=== PATIENT | male | born 1955 | race Caucasian/White ===

== ENCOUNTER 2016-12-21 09:46 | Inpatient (IN) | payer MEDICARE, OTHER ==
[~2016-12-21] VITALS: Ht 185.4 cm; Wt 120.8 kg
[2016-12-21] VITALS (21 sets, daily range): BP systolic 89–152; BP diastolic 52–91; PULSE 36–55; RESP 16–24; TEMP 98–98.5; O2SAT 87–100
[~2016-12-21 09:46] MED LIST: B/P PILL PO; CEFT500T PO; GEMF600 PO; GLUC10TA3 PO; LORT5TAB PO; VASO10TA8 PO
[2016-12-21] MEDS ORDERED: ATOR40TA16 PO (10:07)
[2016-12-21] MEDS ORDERED: HYDR-3583 PO (10:07)
[2016-12-21] MEDS ORDERED: FENO1TAB46 PO (10:07)
[2016-12-21] MEDS ORDERED: WARF-22 PO (10:07)
[2016-12-21] MEDS ORDERED: LISI-515 PO (10:07)
[2016-12-21] MEDS ORDERED: GLIP10TA6 PO (10:07)
[2016-12-21] MEDS ORDERED: TAMS0.4C4 PO (10:07)
[2016-12-21] MEDS ORDERED: METF850T PO (10:07)
[2016-12-21] MEDS ORDERED: AMIO0.1T PO (10:07)
[2016-12-21 10:48] LABS: AUTOMATED NEUTROPHIL # 4.4 TH/MM3 (1.8-7.7); BASOPHIL # 0.1 TH/MM3 (0-0.2); BASOPHIL % 0.6 % (0.0-2.0); EOSINOPHIL # 0.2 TH/MM3 (0-0.4); EOSINOPHIL % 2.6 % (0.0-4.0); HEMATOCRIT 42.6 % (39.0-51.0); HEMO FLAGS DIFF FINAL; LYMPH % 38.4 % (9.0-44.0); LYMPHOCYTE # 3.5 TH/MM3 (1.0-4.8); MEAN CORPUSCULAR HEMOGLOBIN 33.7 PG (27.0-34.0); MEAN CORPUSCULAR HGB CONC 34.7 % (32.0-36.0); MONO % 9.7 % (0.0-8.0); NEUT % 48.7 % (16.0-70.0); PLATELET COUNT 200 TH/MM3 (150-450); RED BLOOD COUNT 4.39 MIL/MM3 (4.50-5.90); RED CELL DISTRIBUTION WIDTH 13.8 % (11.6-17.2); WHITE BLOOD COUNT 9.1 TH/MM3 (4.0-11.0)
--- NOTE | 2016-12-21 10:49 | RADRPT ---
EXAM DATE/TIME: 12/21/2016 10:08 [facility] COMPARISON: No previous studies available for comparison. INDICATIONS : Palpitation MEDICAL HISTORY : A-fib SURGICAL HISTORY : None. ENCOUNTER: Initial ACUITY: 1 day PAIN SCORE: 0/10 LOCATION: Bilateral chest FINDINGS: A single view of the chest demonstrates left basilar atelectasis. Heart in the upper limits of normal in size. Osseous structures are intact. CONCLUSION: 1. Left basilar atelectasis. Mike Pederson MD on December 21, 2016 at 10:45 Board Certified Radiologist. This report was verified electronically.
[2016-12-21 10:56] LABS: APTT (PATIENT) 27.8 SEC (24.3-30.1); PROTHROMBIN TIME - PATIENT 11.3 SEC (9.8-11.6)
[2016-12-21 10:59] LABS: BLOOD UREA NITROGEN 23 MG/DL (7-18)
[2016-12-21 11:00] LABS: ANION GAP 6 MEQ/L (5-15); BICARBONATE 25.6 MEQ/L (21.0-32.0); CHLORIDE 107 MEQ/L (98-107); GLOMERULAR FILTRATION RATE 70 ML/MIN (>89); MAGNESIUM 1.9 MG/DL (1.5-2.5); POTASSIUM 5.3 MEQ/L (3.5-5.1); SODIUM (NA) 139 MEQ/L (136-145)
[2016-12-21 11:03] LABS: CREATINE KINASE 110 U/L (39-308)
[2016-12-21 11:15] LABS: CKMB 4.1 NG/ML (0.5-3.6)
[2016-12-21] MEDS ORDERED: SODIUM CHLORID 0.9% 500 ML INJ 500 ML IV ONE (11:15)
[2016-12-21] MEDS ORDERED: MORPHINE SULFATE 4 MG/ML INJ IV PRN (12:00)
[2016-12-21] MEDS ORDERED: SENNOSIDES 8.6 MG TAB PO PRN (12:00)
[2016-12-21] MEDS ORDERED: RESP: ALBUTEROL 2.5 MG/3 ML NEB (PRN) INH (12:00)
[2016-12-21] MEDS ORDERED: ONDANSETRON HCL 4 MG/2 ML VIAL IV PRN (12:00)
[2016-12-21] MEDS ORDERED: SODIUM CHLORIDE 0.9% FLUSH 10 ML FLUSH IV FLUSH PRN (12:00)
[2016-12-21] MEDS ORDERED: MISCELLANEOUS NURSING INFORMATION XX SCH (12:00)
[2016-12-21] MEDS ORDERED: ACETAMINOPHEN 325 MG TAB PO PRN (12:00)
[2016-12-21] MEDS ORDERED: CHLORHEXIDINE GLUCONATE 2 % 1 PACK (2 CLOTHS) TOP PRN (12:00)
[2016-12-21] MEDS ORDERED: SODIUM CHLOR 0.9% 1000 ML INJ 1,000 ML IV SCH (12:30)
[2016-12-21] MEDS: GLUCAGON INJ 20 MG in DEXTROSE 5% IN WATER 100ML INJ 80 ML IV SCH ×2 (12:48)
[2016-12-21] MEDS ORDERED: GLUCAGON 1 MG/ML VIAL OTHER PRN (13:00)
[2016-12-21] MEDS ORDERED: DEXTROSE 50% IN WATER 50 ML VIAL(D50) IV PUSH PRN (13:00)
[2016-12-21] MEDS: oxyCODONE/ACETAMINOPHEN 10 MG/325 MG TAB PO SCH ×2 (13:00→19:58)
--- NOTE | 2016-12-21 13:04 | PD ---
HPI Chief Complaint: Cardiac Complaint Time Seen by Provider: 10:06 Travel History International Travel<30 days: No Contact w/Intl Traveler<30days: No Traveled to known affect area: No History of Present Illness HPI 61-year-old male presents with heart rate in the 30s and sent here for evaluation. He was supposed to have surgery today. He denies specific complaints. He states he's had low heart rate before when he's been on his beta laure. He states that he is taken recently and takes it regularly. 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 [facility] Past Medical History Atrial Fibrillation: Yes Cancer: Yes (SKIN) High Cholesterol: Yes Diabetes: Yes Patient Takes Glucophage: Yes (12/20/16 2100) Diminished Hearing: No Deep Vein Thrombosis: Yes Glaucoma: Yes Hypertension: Yes Tetanus Vaccination: Unknown Influenza Vaccination: No ?: Not Past Surgical History Cholecystectomy: Yes Other Surgery: Yes (PAIN PUMP INSERTION 2007) Social History Alcohol Use: No Tobacco Use: Yes (1 PPD) Substance Use: No Allergies-Medications (Allergen,Severity, Reaction): Coded Allergies: No Known Allergies (Verified , 12/21/16) Reported Meds & Prescriptions Reported Meds & Active Scripts Active Reported Fenofibrate 40 Mg Tab 40 Mg PO DAILY Amiodarone (Amiodarone HCl) 100 Mg Tab 100 Mg PO BID Atorvastatin (Atorvastatin Calcium) 40 Mg Tab 40 Mg PO HS Tamsulosin (Tamsulosin HCl) 0.4 Mg Cap 0.4 Mg PO HS Lisinopril 20 Mg Tab 20 Mg PO DAILY Metformin (Metformin HCl) 850 Mg Tab 850 Mg PO BIDPC With meals Hydrocodone-Acetaminophen 10-325 mg Tab 1 Tab PO Q6H PRN Glipizide 10 Mg Tab 10 Mg PO BIDAC Take 30 minutes before a meal Warfarin 10 Mg Tab 10 Mg PO DAILY Review of Systems Except as stated in HPI: all other systems reviewed are Neg Physical Exam Narrative GENERAL: 124 kg patient, well-developed SKIN: Warm and dry. HEAD: Normocephalic and atraumatic. EYES: No injection or drainage. ENT: No nasal drainage noted. NECK: Supple, trachea midline. CARDIOVASCULAR: Bradycardic rate and irregular rhythm RESPIRATORY: Breath sounds equal bilaterally at apices. No accessory muscle use. GASTROINTESTINAL: Abdomen soft, non-tender, nondistended. EXTREMITIES: No edema. NEUROLOGICAL: Awake and alert. Moves all extremities. Normal speech. Data Data Last Documented VS Vital Signs Date Time Temp Pulse Resp B/P Pulse Ox O2 Delivery O2 Flow Rate FiO2 12/21/16 11:08 39 16 89/58 97 Room Air 12/21/16 09:55 98.0 Orders Electrocardiogram (12/21/16 ) Magnesium (Mg) (12/21/16 10:11) Phosphorus (Po4) (12/21/16 10:11) Complete Blood Count With Diff (12/21/16 10:11) Basic Metabolic Panel (Bmp) (12/21/16 10:11) Ckmb (Isoenzyme) Profile (12/21/16 10:11) Troponin I (12/21/16 10:11) Act Partial Throm Time (Ptt) (12/21/16 10:11) Prothrombin Time / Inr (Pt) (12/21/16 10:11) Chest, Single Ap (12/21/16 ) Ecg Monitoring (12/21/16 10:11) Oximetry (12/21/16 10:11) Iv Access Insert/Monitor (12/21/16 10:11) Consult Cardiology (12/21/16 ) CKMB (12/21/16 10:19) CKMB% (12/21/16 10:19) Sodium Chlorid 0.9% 500 Ml Inj (Ns 500 M (12/21/16 11:15) (Hub Use Only)Inp Phy Cons/Ref (12/21/16 ) Glucagon Inj (Glucagon Inj) (12/21/16 12:30) Admit Order (Ed Use Only) (12/21/16 11:49) Labs Laboratory Tests Test 12/21/16 10:19 White Blood Count 9.1 TH/MM3 Red Blood Count 4.39 MIL/MM3 Hemoglobin 14.8 GM/DL Hematocrit 42.6 % Mean Corpuscular Volume 97.0 FL Mean Corpuscular Hemoglobin 33.7 PG Mean Corpuscular Hemoglobin 34.7 % Concent Red Cell Distribution Width 13.8 % Platelet Count 200 TH/MM3 Mean Platelet Volume 9.2 FL Neutrophils (%) (Auto) 48.7 % Lymphocytes (%) (Auto) 38.4 % Monocytes (%) (Auto) 9.7 % Eosinophils (%) (Auto) 2.6 % Basophils (%) (Auto) 0.6 % Neutrophils # (Auto) 4.4 TH/MM3 Lymphocytes # (Auto) 3.5 TH/MM3 Monocytes # (Auto) 0.9 TH/MM3 Eosinophils # (Auto) 0.2 TH/MM3 Basophils # (Auto) 0.1 TH/MM3 CBC Comment DIFF FINAL Differential Comment Prothrombin Time 11.3 SEC Prothromb Time International 1.0 RATIO Ratio Activated Partial 27.8 SEC Thromboplast Time Sodium Level 139 MEQ/L Potassium Level 5.3 MEQ/L Chloride Level 107 MEQ/L Carbon Dioxide Level 25.6 MEQ/L Anion Gap 6 MEQ/L Blood Urea Nitrogen 23 MG/DL Creatinine 1.07 MG/DL Estimat Glomerular Filtration 70 ML/MIN Rate Random Glucose 133 MG/DL Calcium Level 8.9 MG/DL Phosphorus Level 2.8 MG/DL Magnesium Level 1.9 MG/DL Total Creatine Kinase 110 U/L Creatine Kinase MB 4.1 NG/ML Troponin I LESS THAN 0.02 NG/ML MDM Medical Decision Making Medical Screen Exam Complete: Yes Emergency Medical Condition: Yes Medical Record Reviewed: Yes (past history confirmed) Interpretation(s) EKG is narrow complex irregular bradycardic rhythm, right bundle branch block noted, T wave inversion V1 through and V3 no STEMI criteria CBC & BMP Diagram 12/21/16 10:19 Last 24 hours Impressions Chest X-Ray 12/21/16 0000 Signed Impressions: Service Date/Time: , December 21, 2016 10:08 - CONCLUSION: 1. Left basilar atelectasis. Mike Pederson MD Rhythm strip on monitor with glucagon appears to be sinus bradycardia Differential Diagnosis A. fib with slow ventricular response, sinus bradycardia, junctional, electrolyte abnormality Narrative Course will check labs, chest x-ray monitor. Patient asymptomatic and blood pressure is stable. Given glaucoma history will hold atropine Patient is now hypotensive. We'll give fluid bolus of 500 cc and start glucagon drip. Case discussed with cardiology. Patient updated and agrees to admission. He will be closely monitored in the ICU Critical Care Narrative Aggregate critical care time was 40 minutes. Time to perform other separately billable procedures was not included in the critical care time. My time did not include minutes spent treating any other patients simultaneously or on activities that did not directly contribute to the patient's treatment. The services I provided to this patient were to treat and/or prevent clinically significant deterioration that could result in: Worsening Bradycardia, hypotension I provided critical care services requiring my management, as noted below: Chart data review, documentation time, medication orders and management, vital sign assessments/reviewing monitor data, ordering and reviewing lab tests, ordering and interpreting/reviewing x-rays and diagnostic studies, care of the patient and discussion of the patient with the admitting physicians. Physician Communication Physician Communication dr quezada agrees to glucagon drip and will see dr tristan agrees to admit Diagnosis Primary Impression: Sinus bradycardia Admitting Information Admitting Physician Requests: Admit Sneha Tucker MD December 21, 2016 13:04
--- NOTE | 2016-12-21 13:07 | HHI.HP ---
[facility] Service Critical Care Medicine Primary Care Physician Amarilis Corrigan MD Admission Diagnosis bradycardia Diagnosis: (1) Sinus bradycardia Diagnosis: Principal (2) COPD (chronic obstructive pulmonary disease) Diagnosis: Principal (3) History of pulmonary embolus (PE) Diagnosis: Principal (4) Hypertension Diagnosis: Principal (5) BPH (benign prostatic hyperplasia) Diagnosis: Principal (6) Diabetes mellitus Diagnosis: Principal (7) Chronic venous stasis dermatitis Diagnosis: Principal Chief Complaint: I was sent here because they said my heart rate was slow Travel History International Travel<30 Days: No Contact w/Intl Traveler <30 Da: No Traveled to Known Affected Are: No History of Present Illness 61-year-old male. Date of admission 12/21/2016. 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 Arias for replacement of Dilaudid pain pump), diabetes mellitus, atrial fibrillation and chronic venous stasis. He has a history of 5 separate surgeries to his lumbar spine. He presents to [facility] with the following history. This morning, patient states he accidentally took an atenolol in his carport. He presented preop for surgery for Dilaudid pain pump replacement/out for 2 years for which he's been taking Percocets 4 times daily, and on routine vitals noted to have sinus bradycardia. He is hemodynamically stable. He is sent by ambulance to [facility] with further evaluation treatment. Initial EKG revealed a slow A. fib. He is currently in sinus bradycardia on monitor. Electrolytes within normal limits. Troponin 0.02. Initially asymptomatic but became hypotensive and a 1 L normal saline boluses provided. Patient is currently on a glucagon drip just started at 3 mg an hour. Denies chest pain, shortness of breath, nausea or vomiting. Requesting pain medications. Review of Systems Constitutional: COMPLAINS OF: Fatigue, DENIES: Fever, Weight gain, Weight loss Endocrine: DENIES: Heat/cold intolerance, Polyuria Eyes: DENIES: Blurred vision, Double Vision Ears, nose, mouth, throat: DENIES: Tinnitus, Toothache Respiratory: DENIES: Apneas, Hemoptysis Cardiovascular: DENIES: Chest pain Gastrointestinal: DENIES: Abdominal pain Genitourinary: DENIES: Urgency, Hematuria Musculoskeletal: DENIES: Joint pain Integumentary: DENIES: Abnormal pigmentation Hematologic/lymphatic: DENIES: Bruising Immunologic/allergic: DENIES: Eczema Neurologic: DENIES: Abnormal gait Psychiatric: DENIES: Anxiety, Confusion Past Family Social History Allergies: Coded Allergies: No Known Allergies (Verified , 12/21/16) Past Medical History Diabetes mellitus COPD Glaucoma Left lower extremity DVT PE Chronic anticoagulation Chronic venous stasis Atrial fibrillation Past Surgical History 5 separate lumbar spine surgeries Tonsillectomy and adenoidectomy Laparoscopic cholecystectomy Left partial knee Reported Medications Reported Meds & Active Scripts Active Reported Fenofibrate 40 Mg Tab 40 Mg PO DAILY Amiodarone (Amiodarone HCl) 100 Mg Tab 100 Mg PO BID Atorvastatin (Atorvastatin Calcium) 40 Mg Tab 40 Mg PO HS Tamsulosin (Tamsulosin HCl) 0.4 Mg Cap 0.4 Mg PO HS Lisinopril 20 Mg Tab 20 Mg PO DAILY Metformin (Metformin HCl) 850 Mg Tab 850 Mg PO BIDPC With meals Hydrocodone-Acetaminophen 10-325 mg Tab 1 Tab PO Q6H PRN Glipizide 10 Mg Tab 10 Mg PO BIDAC Take 30 minutes before a meal Warfarin 10 Mg Tab 10 Mg PO DAILY Active Ordered Medications Reviewed in EMR Family History Positive for coronary disease and hypertension Social History [id number] tobacco. Occasional alcohol use. Denies IV drug use. Physical Exam Vital Signs Vital Signs Date Time Temp Pulse Resp B/P Pulse Ox O2 Delivery O2 Flow Rate FiO2 12/21/16 12:49 42 17 123/66 97 Room Air 12/21/16 12:25 97 21 12/21/16 11:55 45 17 114/89 97 Room Air 12/21/16 11:08 39 16 89/58 97 Room Air 12/21/16 10:26 40 16 105/58 98 Room Air 12/21/16 10:26 98 Room Air 12/21/16 10:07 44 17 97 Room Air 12/21/16 09:55 98.0 45 16 99/55 97 Physical Exam GENERAL: 61-year-old male, resting in bed in no acute distress SKIN: Warm and dry. Chronic venous stasis changes bilateral lower extremities HEAD: Atraumatic. Normocephalic. EYES: Pupils equal and round about 3 mm bilaterally and reactive. No scleral icterus. No injection or drainage. ENT: No nasal bleeding or discharge. Mucous membranes pink and moist. NECK: Trachea midline. No JVD. CARDIOVASCULAR: Bradycardia, IR. S1, S2 no S4 without murmur RESPIRATORY: No accessory muscle use. Clear to auscultation. Breath sounds equal bilaterally. GASTROINTESTINAL: Abdomen soft, non-tender, nondistended. Hepatic and splenic margins not palpable. MUSCULOSKELETAL: Extremities with chronic venous stasis/1+ nonpitting edema NEUROLOGICAL: Awake and alert. No obvious cranial nerve deficits. Motor grossly within normal limits. Five out of 5 muscle strength in the arms and legs. Normal speech. PSYCHIATRIC: Appropriate mood and affect; insight and judgment normal. Laboratory Laboratory Tests Test 12/21/16 10:19 White Blood Count 9.1 Red Blood Count 4.39 Hemoglobin 14.8 Hematocrit 42.6 Mean Corpuscular Volume 97.0 Mean Corpuscular Hemoglobin 33.7 Mean Corpuscular Hemoglobin 34.7 Concent Red Cell Distribution Width 13.8 Platelet Count 200 Mean Platelet Volume 9.2 Neutrophils (%) (Auto) 48.7 Lymphocytes (%) (Auto) 38.4 Monocytes (%) (Auto) 9.7 Eosinophils (%) (Auto) 2.6 Basophils (%) (Auto) 0.6 Neutrophils # (Auto) 4.4 Lymphocytes # (Auto) 3.5 Monocytes # (Auto) 0.9 Eosinophils # (Auto) 0.2 Basophils # (Auto) 0.1 CBC Comment DIFF FINAL Differential Comment Prothrombin Time 11.3 Prothromb Time International 1.0 Ratio Activated Partial 27.8 Thromboplast Time Sodium Level 139 Potassium Level 5.3 Chloride Level 107 Carbon Dioxide Level 25.6 Anion Gap 6 Blood Urea Nitrogen 23 Creatinine 1.07 Estimat Glomerular Filtration 70 Rate Random Glucose 133 Calcium Level 8.9 Phosphorus Level 2.8 Magnesium Level 1.9 Total Creatine Kinase 110 Creatine Kinase MB 4.1 Troponin I LESS THAN 0.02 Result Diagram: 12/21/16 1019 12/21/16 1019 Imaging Last Impressions Chest X-Ray 12/21/16 0000 Signed Impressions: Service Date/Time: December 10:08 - CONCLUSION: 1. Left basilar atelectasis. Mike Pederson MD Assessment and Plan Assessment and Plan Neuro/Psych: Glaucoma Chronic pain management Chronic low back pain Patient currently on Percocet 10/325 one tablet 4 times a day Acetaminophen for fever Patient with a nonfunctioning Dilaudid pain pump currently. Replace when stable clinically outpatient by Dr. Arias as an outpatient CV: Sinus bradycardia - symptomatic History of hypertension History of atrial fibrillation Currently monitor reveals sinus bradycardia Received 1 L normal saline in ED for hypotension Currently a glucagon drip at 3 mg an hour. Titrate 1 mg every 15 minutes to effect Hold amiodarone 100 mg by mouth twice a day patient fibrillation Hold lisinopril 20 mg by mouth daily while hypotensive Hold atorvastatin 40 mg by mouth daily. Resume when clinically indicated Initial troponin 0.02 Consulted by cardiology/Dr. Eastman Resp: COPD History of pulmonary embolism Nasal cannula to maintain saturations greater than or equal to 92% Incentive spirometry while awake As needed albuterol therapy every 2 hours Chest x-ray 12/21 revealed left lower lobe atelectasis GI: ADA diet Protonix for GI prophylaxis Colace/as needed Senokot for bowel regimen : BPH Woody is currently not indicated Holding Flomax 0.4 mill grams by mouth daily currently. Endo: Diabetes mellitus Hold Glucophage 850 mg by mouth twice a day and glipizide 10 mg by mouth twice a day Sliding-scale insulin with Accu-Cheks every 4 hours/medium protocol Minute insulin drip while on glucagon drip Renal: Creatinine currently within normal limits Follow up BMP On normal saline at 84 cc an hour Heme: Chronic anticoagulation use/warfarin CBC within normal limits Coags within normal limits ID: Monitor for infection MSK: History of lumbar surgery 5 History of left total knee replacement PT evaluate and treat FEN: Hyperkalemia Monitor electrolytes and replace as clinically indicated Access - Utilize peripheral IV. Central line if indicated Prophylaxis - GI - Protonix - DVT - SCD/heparin subcutaneous Critical Care: The total critical care time was 55 minutes. Time to perform other separately billable procedures was not included in the critical care time. Code Status Full code Discussed Condition With Dr. Sneha Tucker/ED physician. Patient. Care plan discussed all questions answered. Problem Qualifiers (1) COPD (chronic obstructive pulmonary disease): (2) Hypertension: Qualified Code: I10 - Essential hypertension (3) BPH (benign prostatic hyperplasia): Qualified Code: N40.0 - Benign prostatic hyperplasia, presence of lower urinary tract symptoms unspecified, unspecified morphology (4) Diabetes mellitus: Hugo Alvares MD December 21, 2016 13:06
[2016-12-21] MEDS: ACETAMINOPHEN/HYDROcodone 325 MG/5 MG TAB PO PRN ×2 (13:31→17:38)
[2016-12-21] MEDS: MAGNESIUM SULFATE 1 GM PREMIX 100 ML IV SCH ×2 (13:32→14:42)
[2016-12-21] MEDS: ARTIFICIAL TEARS OPTH SOLN 15 ML BTL EACH EYE SCH ×2 (13:42→17:38)
--- NOTE | 2016-12-21 14:51 | OTSOAPIP ---
TIME SESSION COMPLETED: 1400 TREATMENT TIME: 0 MINS. CHART REVIEWED. INTERDISCIPLINARY COMMUNICATION: CONSULTED WITH NURSING, OCCUPATIONAL THERAPY EVALUATION HELD PATIENT WITH A HEART RATE OF 44. PLAN: WILL SEE PATIENT NEXT TREATMENT DAY Therapist: SANDI GIRON/[employer] on file
[2016-12-21] MEDS ORDERED: CALCIUM GLUCONATE INJ 1 GM in SODIUM CHLORIDE 0.9% INJ 100 ML IV ONE (15:00)
--- NOTE | 2016-12-21 15:22 | EKG ---
Date Performed: 12/21/2016 Time Performed: 09:56:21 PTAGE: 61 years EKG: Probable ATRIAL FIBRILLATION WITH SLOW VENTRICULAR RESPONSE RIGHT BUNDLE BRANCH BLOCK ABNOR MAL ECG INTERPRETATION BASED ON A DEFAULT AGE OF 40 YEARS COMPARED TO PRIOR ELECTROCARDIOGRAM, Probab le atrial fibrillation has replaced Sinus rhythm . PREVIOUS TRACING : 07/29/2007 11.47 DOCTOR: Isauro Dougherty Interpretating Date/Time 12/21/2016 15:21:21
[2016-12-21] MEDS: INSULIN NovoLIN REGULAR SUPPLEMENTAL SCALE SQ SCH ×2 (16:00→20:00)
--- NOTE | 2016-12-21 16:46 | MB ---
cc: NICOLE NAVARRO M.D. DATE OF CONSULTATION 12/21/16 Ronny is a very pleasant 61-year-old gentleman followed at the MD sent to [facility] for elective surgery today, however, found to have a heart rate in the 30s with hypotension was sent to the ER for evaluation and management. He has been recently told to stop his beta laure due to bradycardia and he accidentally took it last night. Currently, he is sitting at the bedside. He is responding to fluid boluses. He has a history of glaucoma and was not given atropine. Otherwise, he denies any fevers, chills, cough, GIx or bleeding, paroxysmal nocturnal dyspnea orthopnea, syncope or dizziness. PAST MEDICAL HISTORY As per history present illness. 1. History of hyperlipidemia, 2. Diabetes. 3. Deep vein thrombosis 4. Glaucoma, 5. Hypertension, 6. Pain pump insertion 2007 SOCIAL HISTORY He smokes a pack of cigarettes a day. He denies alcohol use. ALLERGIES None. MEDICATIONS Prior to admission here. 1. Fenofibrate 2. Amiodarone 3. Atorvastatin 4. Tamsulosin 5. Lisinopril 6. Metformin 7. Hydrocodone 8. Glipizide 9. Warfarin Current in the hospital. 1. Pantoprazole 40 IV daily, 2. Docusate 100 b.i.d. 3. Calcium carbonate. 4. Insulin. PHYSICAL EXAMINATION VITAL SIGNS: Pulse ranging between 44 and 55, blood pressure 151/91. GENERAL: He is alert and oriented times three in no acute distress. NECK: Supple. No jugular venous distention. No bruit. CARDIOVASCULAR: S1, S2, no murmurs, rubs or gallops. LUNGS: Clear to auscultation bilateral. ABDOMEN: Soft, nontender, nondistended with positive bowel sounds. EXTREMITIES: No lower extremity edema. LABORATORY DATA White count 9.1, hemoglobin 14.8, hematocrit 42.2 platelet count 200. Sodium 139, potassium, 5.3, chloride 107, bicarb 25.6, BUN 23, creatinine 1.07, glucose 133. Troponin less than 0.02. INR 1.0. IMAGING STUDIES Chest x-ray - left basilar atelectasis CARDIOLOGY STUDIES Electrocardiogram - interpretation shows probable atrial fibrillation with slow ventricular responds, right bundle branch block. DIAGNOSES 1. Atrial fibrillation with slow response 2. Hypertension. 3. Diabetes. 4. History of DVT. 5. Hypertension 6. Tobacco use. 7. Pain pump insertion. ASSESSMENT At this point in time, the patient is responding to fluid boluses and obviously we are going to hold his beta-laure, suspect heart rate will normalize off his atenolol. His anticoagulation has been held due to perioperative status. We will continue telemetry monitoring. Further recommendations pending the trend in his heart rate and blood pressure. MD FERCHO Machuca/ /3:59 PM /4:34 PM
[2016-12-21] MEDS: DOCUSATE SODIUM 100 MG CAP PO SCH (19:58)
[2016-12-21] MEDS: SODIUM CHLORIDE 0.9% FLUSH 10 ML FLUSH IV FLUSH SCH (19:59)
--- NOTE | 2016-12-21 20:14 | PD.PROCEDR ---
Central Line Procedure REASON FOR PROCEDURE Central venous access PROCEDURE PERFORMED Central line placement: Right IJ Cordis CONSENT Informed consent for procedure was obtained from the patient. The risks and benefits of the procedure were discussed to include but limited to bleeding, clot formation, infection, and even . ANESTHESIA Local injection of 1% Lidocaine DESCRIPTION OF THE PROCEDURE The patient was placed in supine, mild Trendelenburg position. The area was exposed and cleansed with ChloraPrep, times two. Large sterile drape was used to cover the patient, with the site exposed, under sterile conditions including cap, face mask, sterile gown, and sterile gloves. On single attempt, the introducer needle was inserted with negative pressure in syringe and venous flash was obtained. The guide wire was then advanced without any restriction and the needle was removed. The dilator was used without any complications. Using Seldinger technique the. Psychiatric injured goal hemostasis valve/side- port 7.5 Sami catheter was advanced over the guide wire to a depth of 10 centimeters. The guide wire was removed. The single port was aspirated with dark venous blood return and flushed easily with sterile saline. The 2 ports were capped. Antibiotic disc was placed around central line at puncture site. The central line was secured to the skin with 1 interrupted 2.0 silk sutures. The area was bandaged with sterile see-through central line bandage. RADIOLOGICAL DATA Ultrasound guidance was used to locate right internal jugular vein. Doppler/ color flow was used to confirm venous flow. COMPLICATIONS: No apparent complications ESTIMATED BLOOD LOSS: Less than 1 cc. Hugo Alvares MD December 21, 2016 20:14
[2016-12-21] MEDS ORDERED: DOPamine INJ 1,600 MG in DEXTROSE 5% IN WATER INJ 240 ML IV SCH ×2 (20:15)
[2016-12-21] MEDS ORDERED: TERBUTALINE INJ 1 MG/ML AMP SQ PRN (20:15)
[2016-12-21] MEDS ORDERED: SODIUM CHLORIDE 0.9% FLUSH 10 ML FLUSH IVF PRN (20:15)
--- NOTE | 2016-12-21 20:37 | RADRPT ---
EXAM DATE/TIME: 12/21/2016 20:17 This report includes an Addendum and supersedes previous reports for this exam. [facility] COMPARISON: CHEST SINGLE AP, December 21, 2016, 10:08. INDICATIONS : Central line placement. MEDICAL HISTORY : Afib SURGICAL HISTORY : None. ENCOUNTER: Initial ACUITY: 1 day PAIN SCORE: 0/10 LOCATION: Bilateral chest FINDINGS: Right neck sheath is noted. No pneumothorax from placement. Mild basilar interstitial infiltrates per sist. No significant effusion. Cardiac contours are stable. CONCLUSION: Mild basilar interstitial changes Evelio Elizabeth MD on December 21, 2016 at 20:35 Board Certified Radiologist. This report was verified electronically. ADDENDUM: The right neck sheath is present extending to the low jugular region. No evidence of pneumothorax or other complication. Evelio Elizabeth MD on December 21, 2016 at 21:05 Board Certified Radiologist. This report was verified electronically.
[2016-12-22] VITALS (22 sets, daily range): BP systolic 92–143; BP diastolic 54–97; PULSE 42–56; RESP 15–29; TEMP 97.8–98.8; O2SAT 87–95
[2016-12-22] MEDS: oxyCODONE/ACETAMINOPHEN 10 MG/325 MG TAB PO SCH ×4 (00:30→17:57)
[2016-12-22] MEDS: GLUCAGON INJ 20 MG in DEXTROSE 5% IN WATER 100ML INJ 80 ML IV SCH ×6 (00:30→10:02)
[2016-12-22 01:20] LABS: AUTOMATED NEUTROPHIL # 6.2 TH/MM3 (1.8-7.7); BASOPHIL # 0.1 TH/MM3 (0-0.2); BASOPHIL % 0.8 % (0.0-2.0); EOSINOPHIL # 0.2 TH/MM3 (0-0.4); EOSINOPHIL % 2.1 % (0.0-4.0); HEMATOCRIT 41.5 % (39.0-51.0); HEMO FLAGS DIFF FINAL; LYMPH % 29.8 % (9.0-44.0); LYMPHOCYTE # 3.1 TH/MM3 (1.0-4.8); MEAN CORPUSCULAR HGB CONC 34.3 % (32.0-36.0); MONO % 7.3 % (0.0-8.0); PLATELET COUNT 165 TH/MM3 (150-450); RED BLOOD COUNT 4.32 MIL/MM3 (4.50-5.90); RED CELL DISTRIBUTION WIDTH 13.7 % (11.6-17.2); WHITE BLOOD COUNT 10.3 TH/MM3 (4.0-11.0)
[2016-12-22 01:27] LABS: PROTHROMBIN TIME - PATIENT 11.4 SEC (9.8-11.6)
[2016-12-22 01:46] LABS: ALT (GPT) 26 U/L (12-78); ANION GAP 8 MEQ/L (5-15); AST (GOT) 19 U/L (15-37); BICARBONATE 25.6 MEQ/L (21.0-32.0); BLOOD UREA NITROGEN 22 MG/DL (7-18); CHLORIDE 104 MEQ/L (98-107); GLOMERULAR FILTRATION RATE 116 ML/MIN (>89); MAGNESIUM 2.1 MG/DL (1.5-2.5); POTASSIUM 3.6 MEQ/L (3.5-5.1); SODIUM (NA) 138 MEQ/L (136-145)
[2016-12-22 01:50] LABS: ALKALINE PHOSPHATASE 39 U/L (45-117); TOTAL BILIRUBIN ADULT 0.5 MG/DL (0.2-1.0)
[2016-12-22] MEDS: CHLORHEXIDINE GLUCONATE 2 % 1 PACK (2 CLOTHS) TOP SCH (04:00)
[2016-12-22] MEDS: INSULIN NovoLIN REGULAR SUPPLEMENTAL SCALE SQ SCH ×7 (04:00→23:44)
--- NOTE | 2016-12-22 05:30 | RADRPT ---
EXAM DATE/TIME: 12/22/2016 02:31 [facility] COMPARISON: CHEST SINGLE AP, December 21, 2016, 20:17. INDICATIONS : Shortness of breath. MEDICAL HISTORY : Afib SURGICAL HISTORY : None. ENCOUNTER: Subsequent ACUITY: 2 days PAIN SCORE: 0/10 LOCATION: chest FINDINGS: The right lung base is now clear. The right lung is clear. There is a mild infiltrate in the left sang g base. The left upper lung is clear. There are no pleural effusions. The heart size is stable. The b bud structures are stable. CONCLUSION: 1. Mild left lower lung infiltrate. 2. The previously noted mild right lower lung infiltrate resolved. Yusuf Sethi MD on December 22, 2016 at 5:28 Board Certified Radiologist. This report was verified electronically.
[2016-12-22] MEDS: PANTOPRAZOLE SODIUM 40 MG VIAL IV SCH (08:38)
[2016-12-22] MEDS: SODIUM CHLORIDE 0.9% FLUSH 10 ML FLUSH IV FLUSH SCH ×2 (08:38→19:45)
[2016-12-22] MEDS: ARTIFICIAL TEARS OPTH SOLN 15 ML BTL EACH EYE SCH ×3 (08:39→18:00)
[2016-12-22] MEDS: DOCUSATE SODIUM 100 MG CAP PO SCH ×2 (08:39→19:45)
[2016-12-22] MEDS ORDERED: INFLUENZA VIRUS VACCINE (QUADRIVALENT) 0.5 ML SYR IM ONE (10:00)
--- NOTE | 2016-12-22 10:41 | PD.CARD.PN ---
Subjective Subjective Remarks alert in nad Objective Vital Signs / I&O Vital Signs Date Time Temp Pulse Resp B/P Pulse Ox O2 Delivery O2 Flow Rate FiO2 12/22/16 06:00 48 12/22/16 05:00 46 18 125/59 88 12/22/16 04:00 98.4 46 18 126/78 89 12/22/16 04:00 46 12/22/16 03:00 43 20 120/68 90 12/22/16 02:01 45 18 109/59 87 12/22/16 02:00 44 12/22/16 02:00 44 12/22/16 01:01 42 20 122/67 91 12/22/16 00:21 98.2 46 29 92/54 89 12/22/16 00:00 45 12/22/16 00:00 45 12/21/16 23:01 46 19 122/66 90 12/21/16 22:17 48 19 91/52 87 12/21/16 22:00 45 12/21/16 22:00 48 12/21/16 20:00 39 12/21/16 20:00 39 12/21/16 20:00 39 24 138/74 94 12/21/16 19:00 98.5 36 24 105/55 93 12/21/16 17:30 36 12/21/16 16:45 49 16 122/76 100 Room Air 12/21/16 16:24 48 16 122/72 100 Room Air 12/21/16 15:43 48 16 151/91 97 Room Air 12/21/16 15:34 51 16 152/82 97 Room Air 12/21/16 14:40 16 12/21/16 14:36 44 16 140/86 98 Room Air 12/21/16 14:21 55 16 130/77 98 Room Air 12/21/16 14:03 52 16 114/57 98 Room Air 12/21/16 13:23 49 17 126/81 96 Room Air 12/21/16 13:00 48 17 123/66 96 Room Air 12/21/16 12:49 42 17 123/66 97 Room Air 12/21/16 12:25 97 21 12/21/16 11:55 45 17 114/89 97 Room Air 12/21/16 11:08 39 16 89/58 97 Room Air I/O 5/11/17 12/21/16 12/21/16 12/22/16 12/22/16 12/22/16 07:00 15:00 23:00 07:00 15:00 23:00 Intake Total 603 ml 268 ml Output Total 200 ml 400 ml 300 ml Balance -200 ml 203 ml -32 ml Intake Oral 360 ml 120 ml IV Total 243 ml 148 ml Output Urine Total 200 ml 400 ml 300 ml # Voids 1 # Bowel Movements 0 0 Physical Exam GENERAL: SKIN: Warm and dry. HEAD: Normocephalic. EYES: No scleral icterus. No injection or drainage. NECK: Supple, trachea midline. No JVD or lymphadenopathy. CARDIOVASCULAR: Regular rate and rhythm without murmurs, gallops, or rubs. RESPIRATORY: Breath sounds equal bilaterally. No accessory muscle use. GASTROINTESTINAL: Abdomen soft, non-tender, nondistended. MUSCULOSKELETAL: No cyanosis, or edema. BACK: Nontender without obvious deformity. No CVA tenderness. Laboratory Laboratory Tests Test 12/21/16 12/21/16 12/22/16 17:30 18:33 01:00 Nasal Screen MRSA (PCR) MRSA NOT DETECTED Troponin I LESS THAN 0.02 LESS THAN 0.02 NG/ML NG/ML Thyroid Stimulating Hormone 0.761 uIU/ML 3rd Gen White Blood Count 10.3 TH/MM3 Red Blood Count 4.32 MIL/MM3 Hemoglobin 14.2 GM/DL Hematocrit 41.5 % Mean Corpuscular Volume 96.0 FL Mean Corpuscular Hemoglobin 33.0 PG Mean Corpuscular Hemoglobin 34.3 % Concent Red Cell Distribution Width 13.7 % Platelet Count 165 TH/MM3 Mean Platelet Volume 8.9 FL Neutrophils (%) (Auto) 60.0 % Lymphocytes (%) (Auto) 29.8 % Monocytes (%) (Auto) 7.3 % Eosinophils (%) (Auto) 2.1 % Basophils (%) (Auto) 0.8 % Neutrophils # (Auto) 6.2 TH/MM3 Lymphocytes # (Auto) 3.1 TH/MM3 Monocytes # (Auto) 0.8 TH/MM3 Eosinophils # (Auto) 0.2 TH/MM3 Basophils # (Auto) 0.1 TH/MM3 CBC Comment DIFF FINAL Differential Comment Prothrombin Time 11.4 SEC Prothromb Time International 1.0 RATIO Ratio Activated Partial 29.0 SEC Thromboplast Time Sodium Level 138 MEQ/L Potassium Level 3.6 MEQ/L Chloride Level 104 MEQ/L Carbon Dioxide Level 25.6 MEQ/L Anion Gap 8 MEQ/L Blood Urea Nitrogen 22 MG/DL Creatinine 0.69 MG/DL Estimat Glomerular Filtration 116 ML/MIN Rate Random Glucose 143 MG/DL Lactic Acid Level 0.6 mmol/L Calcium Level 8.7 MG/DL Phosphorus Level 2.5 MG/DL Magnesium Level 2.1 MG/DL Total Bilirubin 0.5 MG/DL Aspartate Amino Transf 19 U/L (AST/SGOT) Alanine Aminotransferase 26 U/L (ALT/SGPT) Alkaline Phosphatase 39 U/L Total Protein 6.2 GM/DL Albumin 3.4 GM/DL Assessment and Plan Problem List: (1) COPD (chronic obstructive pulmonary disease) (2) Sinus bradycardia (3) Diabetes mellitus (4) Hypertension (5) BPH (benign prostatic hyperplasia) Assessment and Plan 1.) Bradycardia - resolving off atenolol, ok to transfer out of icu to telemetry , d/w patient and Dr Alvares Problem Qualifiers (1) COPD (chronic obstructive pulmonary disease): (2) Diabetes mellitus: (3) Hypertension: Qualified Code: I10 - Essential hypertension (4) BPH (benign prostatic hyperplasia): Qualified Code: N40.0 - Benign prostatic hyperplasia, presence of lower urinary tract symptoms unspecified, unspecified morphology Maxime Eastman MD December 22, 2016 10:41
--- NOTE | 2016-12-22 10:47 | HHI.CCPN ---
Subjective Remarks/Hospital Course 61-year-old male. Date of admission 12/21/2016. 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 Arias for replacement of Dilaudid pain pump), diabetes mellitus, atrial fibrillation and chronic venous stasis. He has a history of 5 separate surgeries to his lumbar spine. He presents to [facility] with the following history. This morning, patient states he accidentally took an atenolol in his carport. He presented preop for surgery for Dilaudid pain pump replacement/out for 2 years for which he's been taking Percocets 4 times daily, and on routine vitals noted to have sinus bradycardia. He is hemodynamically stable. He is sent by ambulance to [facility] with further evaluation treatment. Initial EKG revealed a slow A. fib. He is currently in sinus bradycardia on monitor. Electrolytes within normal limits. Troponin 0.02. Initially asymptomatic but became hypotensive and a 1 L normal saline boluses provided. Patient is currently on a glucagon drip just started at 3 mg an hour. Denies chest pain, shortness of breath, nausea or vomiting. Requesting pain medications. Subjective 12/22: Asymptomatic. Denies chest pain, shortness of breath, dizziness. Heart rates ranged from mid 30s to upper 50s. Hemodynamically stable Objective Vital Signs Date Time Temp Pulse Resp B/P Pulse Ox O2 Delivery O2 Flow Rate FiO2 12/22/16 06:00 48 12/22/16 05:00 18 125/59 88 12/22/16 04:00 98.4 12/21/16 16:45 Room Air 12/21/16 12:25 21 Intake and Output 12/21/16 12/21/16 12/22/16 08:00 16:00 00:00 Intake Total 603 ml Output Total 200 ml 400 ml Balance -200 ml 203 ml Result Diagram: 12/22/16 0100 12/22/16 0100 Imaging Last Impressions Chest X-Ray 12/22/16 0000 Signed Impressions: Service Date/Time: Thursday, December 22, 2016 02:31 - CONCLUSION: 1. Mild left lower lung infiltrate. 2. The previously noted mild right lower lung infiltrate resolved. Yusuf Sethi MD Last Impressions Chest X-Ray 12/21/16 0000 Signed Impressions: Service Date/Time: December 10:08 - CONCLUSION: 1. Left basilar atelectasis. Mkie Pederson MD Objective Remarks GENERAL: 61-year-old male, resting in bed in no acute distress SKIN: Warm and dry. Chronic venous stasis changes bilateral lower extremities HEAD: Atraumatic. Normocephalic. EYES: Pupils equal and round about 3 mm bilaterally and reactive. No scleral icterus. No injection or drainage. ENT: No nasal bleeding or discharge. Mucous membranes pink and moist. NECK: Trachea midline. No JVD. Right cordis clean dry and intact CARDIOVASCULAR: Bradycardia, RR. S1, S2 no S4 without murmur RESPIRATORY: No accessory muscle use. Clear to auscultation. Breath sounds equal bilaterally. GASTROINTESTINAL: Abdomen soft, non-tender, nondistended. Hepatic and splenic margins not palpable. MUSCULOSKELETAL: Extremities with chronic venous stasis/1+ nonpitting edema NEUROLOGICAL: Awake and alert. No obvious cranial nerve deficits. Motor grossly within normal limits. Five out of 5 muscle strength in the arms and legs. Normal speech. PSYCHIATRIC: Appropriate mood and affect; insight and judgment normal. A/P Assessment and Plan Neuro/Psych: Glaucoma Chronic pain management Chronic low back pain Patient currently on Percocet 10/325 one tablet 4 times a day Acetaminophen for fever Patient with a nonfunctioning Dilaudid pain pump currently. Replace when stable clinically outpatient by Dr. Arias as an outpatient CV: Sinus bradycardia - symptomatic History of hypertension History of atrial fibrillation Currently monitor reveals sinus bradycardia Received 1 L normal saline in ED for hypotension Currently a glucagon drip at 3 mg an hour. We'll discontinue today Hold amiodarone 100 mg by mouth twice a day patient fibrillation Hold lisinopril 20 mg by mouth daily while hypotensive Hold atorvastatin 40 mg by mouth daily. Resume when clinically indicated Initial troponin 0.02 Consulted by cardiology/Dr. Eastman echoCardiogram pending Resp: COPD History of pulmonary embolism Nasal cannula to maintain saturations greater than or equal to 92% Incentive spirometry while awake As needed albuterol therapy every 2 hours Chest x-ray 12/21 revealed left lower lobe atelectasis GI: ADA diet Protonix for GI prophylaxis Colace/as needed Senokot for bowel regimen : BPH Woody is currently not indicated Holding Flomax 0.4 mill grams by mouth daily currently. Endo: Diabetes mellitus Hold Glucophage 850 mg by mouth twice a day and glipizide 10 mg by mouth twice a day Sliding-scale insulin with Accu-Cheks every 4 hours/medium protocol Renal: Creatinine currently within normal limits Follow up BMP On normal saline at 84 cc an hour. Discontinue Heme: Chronic anticoagulation use/warfarin CBC within normal limits Coags within normal limits ID: Monitor for infection MSK: History of lumbar surgery 5 History of left total knee replacement PT evaluate and treat FEN: Hyperkalemia Monitor electrolytes and replace as clinically indicated Access - Utilize peripheral IV. Central line if indicated Prophylaxis - GI - Protonix - DVT - SCD/heparin subcutaneous Critical Care: The total care time was 30 minutes. Time to perform other separately billable procedures was not included in the critical care time. Patient is stable from a critical care standpoint. Discussed with Dr. Eastman/ pipeline superintendent. Okay to transfer to [facility]. Hospitalist assume care in a.m. 12/23 Hugo Alvares MD December 22, 2016 10:47
[2016-12-22] MEDS: SODIUM CHLORIDE 0.9% FLUSH 10 ML FLUSH IVF SCH (13:03)
--- NOTE | 2016-12-22 14:22 | PD.TRANSFR ---
Transfer Summary Admission Date December 21, 2016 at 11:51 Transfer Date: December 22, 2016 Admitting Diagnosis bradycardia Diagnoses: (1) Sinus bradycardia Diagnosis: Principal (2) COPD (chronic obstructive pulmonary disease) Diagnosis: Principal (3) History of pulmonary embolus (PE) Diagnosis: Principal (4) Hypertension Diagnosis: Principal (5) BPH (benign prostatic hyperplasia) Diagnosis: Principal (6) Diabetes mellitus Diagnosis: Principal (7) Chronic venous stasis dermatitis Diagnosis: Principal Transfer Summary/Subjective 61-year-old admitted for sinus bradycardia. Accidentally took atenolol prior to elective surgery Objective Vital Signs Date Time Temp Pulse Resp B/P Pulse Ox O2 Delivery O2 Flow Rate FiO2 12/22/16 12:00 98.6 46 19 105/56 92 12/21/16 16:45 Room Air 12/21/16 12:25 21 Intake and Output 12/21/16 12/21/16 12/22/16 08:00 16:00 00:00 Intake Total 603 ml Output Total 200 ml 400 ml Balance -200 ml 203 ml Result Diagram: 12/22/16 0100 12/22/16 0100 Imaging Last Impressions Chest X-Ray 12/22/16 0000 Signed Impressions: Service Date/Time: Thursday, December 22, 2016 02:31 - CONCLUSION: 1. Mild left lower lung infiltrate. 2. The previously noted mild right lower lung infiltrate resolved. Yusuf Sethi MD Last Impressions Chest X-Ray 12/21/16 0000 Signed Impressions: Service Date/Time: December 10:08 - CONCLUSION: 1. Left basilar atelectasis. Mike Pederson MD Objective Remarks GENERAL: 61-year-old male, resting in bed in no acute distress SKIN: Warm and dry. Chronic venous stasis changes bilateral lower extremities HEAD: Atraumatic. Normocephalic. EYES: Pupils equal and round about 3 mm bilaterally and reactive. No scleral icterus. No injection or drainage. ENT: No nasal bleeding or discharge. Mucous membranes pink and moist. NECK: Trachea midline. No JVD. Right cordis clean dry and intact CARDIOVASCULAR: Bradycardia, RR. S1, S2 no S4 without murmur RESPIRATORY: No accessory muscle use. Clear to auscultation. Breath sounds equal bilaterally. GASTROINTESTINAL: Abdomen soft, non-tender, nondistended. Hepatic and splenic margins not palpable. MUSCULOSKELETAL: Extremities with chronic venous stasis/1+ nonpitting edema NEUROLOGICAL: Awake and alert. No obvious cranial nerve deficits. Motor grossly within normal limits. Five out of 5 muscle strength in the arms and legs. Normal speech. PSYCHIATRIC: Appropriate mood and affect; insight and judgment normal. A/P Assessment and Plan Neuro/Psych: Glaucoma Chronic pain management Chronic low back pain Patient currently on Percocet 10/325 one tablet 4 times a day Acetaminophen for fever Patient with a nonfunctioning Dilaudid pain pump currently. Replace when stable clinically outpatient by Dr. Arias as an outpatient CV: Sinus bradycardia - symptomatic History of hypertension History of atrial fibrillation Currently monitor reveals sinus bradycardia Received 1 L normal saline in ED for hypotension Currently a glucagon drip at 3 mg an hour. We'll discontinue today Hold amiodarone 100 mg by mouth twice a day patient fibrillation Hold lisinopril 20 mg by mouth daily while hypotensive Hold atorvastatin 40 mg by mouth daily. Resume when clinically indicated Initial troponin 0.02 Consulted by cardiology/Dr. Eastman echoCardiogram pending Resp: COPD History of pulmonary embolism Nasal cannula to maintain saturations greater than or equal to 92% Incentive spirometry while awake As needed albuterol therapy every 2 hours Chest x-ray 12/21 revealed left lower lobe atelectasis GI: ADA diet Protonix for GI prophylaxis Colace/as needed Senokot for bowel regimen : BPH Woody is currently not indicated Holding Flomax 0.4 mill grams by mouth daily currently. Endo: Diabetes mellitus Hold Glucophage 850 mg by mouth twice a day and glipizide 10 mg by mouth twice a day Sliding-scale insulin with Accu-Cheks every 4 hours/medium protocol Renal: Creatinine currently within normal limits Follow up BMP On normal saline at 84 cc an hour. Discontinue Heme: Chronic anticoagulation use/warfarin CBC within normal limits Coags within normal limits ID: Monitor for infection MSK: History of lumbar surgery 5 History of left total knee replacement PT evaluate and treat FEN: Hyperkalemia Monitor electrolytes and replace as clinically indicated Access - Utilize peripheral IV. Central line if indicated Prophylaxis - GI - Protonix - DVT - SCD/heparin subcutaneous Critical Care: The total care time was 30 minutes. Time to perform other separately billable procedures was not included in the critical care time. Patient is stable from a critical care standpoint. Discussed with Dr. Eastman/ enroller. Okay to transfer to [facility]. Hospitalist assume care in a.m. 12/23 Hugo Alvares MD December 22, 2016 14:22
[2016-12-23] VITALS (20 sets, daily range): BP systolic 114–128; BP diastolic 62–77; PULSE 42–57; RESP 17–20; TEMP 97.8–97.9; O2SAT 94–95
[2016-12-23] MEDS: oxyCODONE/ACETAMINOPHEN 10 MG/325 MG TAB PO SCH ×2 (03:54→06:36)
[2016-12-23] MEDS: INSULIN NovoLIN REGULAR SUPPLEMENTAL SCALE SQ SCH ×4 (04:00→16:00)
[2016-12-23] MEDS: CHLORHEXIDINE GLUCONATE 2 % 1 PACK (2 CLOTHS) TOP SCH (04:00)
[2016-12-23 06:54] LABS: HEMATOCRIT 43.8 % (39.0-51.0); MEAN CELL VOLUME 96.4 FL (80.0-100.0); MEAN CORPUSCULAR HEMOGLOBIN 32.2 PG (27.0-34.0); MEAN CORPUSCULAR HGB CONC 33.4 % (32.0-36.0); PLATELET COUNT 153 TH/MM3 (150-450); RED BLOOD COUNT 4.54 MIL/MM3 (4.50-5.90); RED CELL DISTRIBUTION WIDTH 13.4 % (11.6-17.2); REVIEW FLAG FINAL
[2016-12-23 07:15] LABS: BICARBONATE 24.7 MEQ/L (21.0-32.0); MAGNESIUM 1.7 MG/DL (1.5-2.5); POTASSIUM 3.8 MEQ/L (3.5-5.1)
--- NOTE | 2016-12-23 08:14 | HHI.PR ---
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 Arias for replacement of Dilaudid pain pump), has diabetes mellitus, atrial fibrillation and chronic venous stasis. He has a history of 5 separate surgeries to his lumbar spine. He presents to [facility] with the following history. He accidentally took an atenolol in his carport. He presented preop for surgery for Dilaudid pain pump replacement out for 2 years for which he's been taking Percocet 4 times daily, and on routine vitals noted to have sinus bradycardia. He is hemodynamically stable. He is sent by ambulance to [facility] with further evaluation treatment. Initial EKG revealed a slow A. fib. He is currently in sinus bradycardia on monitor. Electrolytes within normal limits. 12/22: Asymptomatic. Denies chest pain, shortness of breath, dizziness. Heart rates ranged from mid 30s to upper 50s. Hemodynamically stable Hospitalist Notes: 12/23: as per alignment specialist Sinus Bradycardia resolving off Atenolol. stable seen in his bedroom states he smokes and need to stop smoking, also has Obesity strongly recommended diet and exercise, No nausea, vomit or diarrhea states his actual situation was related to the intake of Aten[facility]ol [facility] but he took them because he has like 12 bottles at home and run out of his actual anti hypertensives. discussed with nurse Miss Freeman heart rate in 50s. Objective Vital Signs Date Time Temp Pulse Resp B/P Pulse Ox O2 Delivery O2 Flow Rate FiO2 12/23/16 07:00 57 12/23/16 06:00 46 12/23/16 05:00 44 12/23/16 04:26 20 12/23/16 04:00 48 12/23/16 03:51 97.9 51 20 121/62 95 12/23/16 03:00 44 12/23/16 02:00 44 12/23/16 01:00 44 12/23/16 00:00 42 12/22/16 23:37 97.8 47 20 94/57 95 12/22/16 23:00 42 12/22/16 22:00 46 12/22/16 21:00 46 12/22/16 20:54 49 12/22/16 20:54 98.2 46 20 143/87 94 12/22/16 20:00 47 12/22/16 20:00 98.8 47 18 136/81 92 12/22/16 19:54 93 12/22/16 18:00 50 12/22/16 16:00 98.2 51 20 142/97 92 12/22/16 16:00 47 12/22/16 14:00 56 12/22/16 12:00 98.6 46 19 105/56 92 12/22/16 12:00 46 12/22/16 10:00 47 I/O 12/22/16 12/22/16 12/22/16 12/23/16 12/23/16 12/23/16 06:59 14:59 22:59 06:59 14:59 22:59 Intake Total 268 ml 1241 ml 400 ml Output Total 300 ml 400 ml 600 ml Balance -32 ml 841 ml -200 ml Intake Oral 120 ml 480 ml 400 ml IV Total 148 ml 761 ml 0 ml Output Urine Total 300 ml 400 ml 600 ml Emesis 0 ml # Bowel Movements 0 0 Result Diagram: 12/23/16 0435 12/23/16 0435 Imaging Last Impressions Chest X-Ray 12/22/16 0000 Signed Impressions: Service Date/Time: Thursday, December 22, 2016 02:31 - CONCLUSION: 1. Mild left lower lung infiltrate. 2. The previously noted mild right lower lung infiltrate resolved. Yusuf Sethi MD Procedures No procedures performed. Other Results Laboratory Tests Test 12/21/16 12/21/16 12/21/16 12/22/16 10:19 17:30 18:33 01:00 Total Creatine Kinase 110 U/L Creatine Kinase MB 4.1 NG/ML Nasal Screen MRSA (PCR) MRSA NOT DETECTED Thyroid Stimulating Hormone 0.761 uIU/ML 3rd Gen Neutrophils (%) (Auto) 60.0 % Lymphocytes (%) (Auto) 29.8 % Monocytes (%) (Auto) 7.3 % Eosinophils (%) (Auto) 2.1 % Basophils (%) (Auto) 0.8 % Neutrophils # (Auto) 6.2 TH/MM3 Lymphocytes # (Auto) 3.1 TH/MM3 Monocytes # (Auto) 0.8 TH/MM3 Eosinophils # (Auto) 0.2 TH/MM3 Basophils # (Auto) 0.1 TH/MM3 CBC Comment DIFF FINAL Differential Comment Prothrombin Time 11.4 SEC Prothromb Time International 1.0 RATIO Ratio Activated Partial 29.0 SEC Thromboplast Time Lactic Acid Level 0.6 mmol/L Total Bilirubin 0.5 MG/DL Aspartate Amino Transf 19 U/L (AST/SGOT) Alanine Aminotransferase 26 U/L (ALT/SGPT) Alkaline Phosphatase 39 U/L Total Protein 6.2 GM/DL Albumin 3.4 GM/DL Test 12/22/16 12/23/16 21:44 04:35 Troponin I LESS THAN 0.02 NG/ML White Blood Count 7.0 TH/MM3 Red Blood Count 4.54 MIL/MM3 Hemoglobin 14.6 GM/DL Hematocrit 43.8 % Mean Corpuscular Volume 96.4 FL Mean Corpuscular Hemoglobin 32.2 PG Mean Corpuscular Hemoglobin 33.4 % Concent Red Cell Distribution Width 13.4 % Platelet Count 153 TH/MM3 Mean Platelet Volume 9.4 FL Sodium Level 138 MEQ/L Potassium Level 3.8 MEQ/L Chloride Level 105 MEQ/L Carbon Dioxide Level 24.7 MEQ/L Anion Gap 8 MEQ/L Blood Urea Nitrogen 16 MG/DL Creatinine 0.88 MG/DL Estimat Glomerular Filtration 87 ML/MIN Rate Random Glucose 99 MG/DL Calcium Level 8.9 MG/DL Phosphorus Level 2.8 MG/DL Magnesium Level 1.7 MG/DL Objective Remarks GENERAL: Obesity, no acute distress. SKIN: Warm and dry. Chronic venous stasis changes bilateral lower extremities HEAD: Atraumatic. Normocephalic. EYES: Pupils equal and round about 3 mm bilaterally and reactive. ENT: No nasal bleeding or discharge. Mucous membranes pink and moist. NECK: Trachea midline. No JVD. Right cordis clean dry and intact CARDIOVASCULAR: Bradycardia, RR. S1, S2 no S4 without murmur RESPIRATORY: Decreased breath sounds bilateral, no wheezing or crackles. GASTROINTESTINAL: Abdomen soft, non-tender, nondistended. Hepatic and splenic margins not palpable. MUSCULOSKELETAL: Extremities with chronic venous stasis/1+ nonpitting edema NEUROLOGICAL: Awake and alert. No focal deficits. PSYCHIATRIC: Appropriate mood and affect; insight and judgment normal. Medications and IVs Current Medications Medications (Trade) Dose Ordered Sig/Emery Route Start Time Stop Time Status Last Admin (NS Flush) 2 ml UNSCH PRN IV FLUSH 12/21/16 12:00 (NS Flush) 2 ml BID IV FLUSH 12/21/16 21:00 12/22/16 19:45 (Tylenol) 650 mg Q6H PRN PO 12/21/16 12:00 (Morphine Inj) 2 mg Q2H PRN IV 12/21/16 12:00 (Protonix Inj) 40 mg DAILY IV 12/22/16 09:00 12/22/16 08:38 (Tears Naturale Opth Soln) 1 drop TID EACH EYE 12/21/16 13:00 12/22/16 18:00 (Zofran Inj) 4 mg Q6H PRN IV 12/21/16 12:00 (Colace) 100 mg BID PO 12/21/16 21:00 12/22/16 19:45 (Senokot) 17.2 mg Q12H PRN PO 12/21/16 12:00 Miscellaneous Information 1 Q361D XX 12/21/16 12:00 (Chlorhexidine 2% Cloth) 3 pack Taper DAILY@04 TOP 12/22/16 04:00 12/18/17 03:59 (Chlorhexidine 2% Cloth) 3 pack UNSCH PRN TOP 12/21/16 12:00 (Percocet 10-325 Mg) 1 tab Q6H PO 12/21/16 13:00 12/23/16 03:54 (D50w (Vial) Inj) 25 ml UNSCH PRN IV PUSH 12/21/16 13:00 (Glucagon Inj) 1 mg UNSCH PRN OTHER 12/21/16 13:00 (NovoLIN R SUPPLEMENTAL SCALE) 1 Q4HR SQ 12/21/16 16:00 12/22/16 19:45 (NS Flush) DAILY IVF 12/21/16 20:15 12/22/16 13:03 (NS Flush) UNSCH PRN IVF 12/21/16 20:15 (Brethine Inj) 1 mg UNSCH PRN SQ 12/21/16 20:15 A/P Assessment and Plan 1. Sinus Bradycardia symptomatic/Hypertension/Atrial Fibrillation received IV fluids, was on Glucagon drip, on Hold Amiodarone 100 mg BID. Hold Lisinopril 20 mg daily while Hypotensive, stable heart rate in 50s, 2. Hyperlipidemia on hold Atorvastatin 40 mg daily. 3. Glaucoma by history 4. Chronic pain management/chronic low back pain currently on Percocet 10/325 mg four times a day, Non functioning Dilaudid pump replace when stable clinically by Doctor Arias as outpatient 5. COPD/PE by History continue Nasal Cannula, keep oxygen Saturation 92%. continue bronchodilator Mucolytic, incentive spirometry 6. BPH on hold Flomax 0.4 mg daily 7. DM II hold Glucophage 850 mg BID and Glipizide 10 mg BID, sliding scale 8. Chronic anticoagulation Warfarin on hold. 9. History of Lumbar Surgery x 5, History of Left Total Knee replacement PT evaluation 10. Obesity strongly recommended diet and exercise. 11. Hypomagnesemia 1.7 given Magnesium replacement keep mag level over 2. Prophylaxis - GI - Protonix - DVT - SCD/heparin subcutaneous Discharge Planning Awaiting final recommendations by alignment specialist for discharge. Tony Carrion MD December 23, 2016 08:14
[2016-12-23] MEDS: PANTOPRAZOLE SODIUM 40 MG VIAL IV SCH (08:46)
[2016-12-23] MEDS: DOCUSATE SODIUM 100 MG CAP PO SCH (08:47)
[2016-12-23] MEDS: SODIUM CHLORIDE 0.9% FLUSH 10 ML FLUSH IV FLUSH SCH (08:47)
[2016-12-23] MEDS: SODIUM CHLORIDE 0.9% FLUSH 10 ML FLUSH IVF SCH (09:00)
[2016-12-23] MEDS: ARTIFICIAL TEARS OPTH SOLN 15 ML BTL EACH EYE SCH ×2 (09:00→13:00)
[2016-12-23] MEDS ORDERED: guaiFENesin E.R. 600 MG TAB PO SCH (10:15)
[2016-12-23] MEDS: MAGNESIUM SULFATE 1 GM PREMIX 100 ML IV SCH ×2 (10:47→12:52)
[2016-12-23] MEDS ORDERED: oxyCODONE/ACETAMINOPHEN 10 MG/325 MG TAB PO PRN (13:00)
--- NOTE | 2016-12-23 15:30 | PD.CARD.PN ---
Subjective Subjective Remarks alert in nad Objective Vital Signs / I&O Vital Signs Date Time Temp Pulse Resp B/P Pulse Ox O2 Delivery O2 Flow Rate FiO2 12/23/16 14:00 47 12/23/16 13:36 18 12/23/16 13:02 50 12/23/16 12:00 97.9 49 18 128/77 94 12/23/16 12:00 49 12/23/16 11:00 49 12/23/16 10:00 50 12/23/16 09:00 50 12/23/16 08:00 97.8 48 17 114/62 94 12/23/16 08:00 50 12/23/16 07:00 57 12/23/16 06:00 46 12/23/16 05:00 44 12/23/16 04:26 20 12/23/16 04:00 48 12/23/16 03:51 97.9 51 20 121/62 95 12/23/16 03:00 44 12/23/16 02:00 44 12/23/16 01:00 44 12/23/16 00:00 42 12/22/16 23:37 97.8 47 20 94/57 95 12/22/16 23:00 42 12/22/16 22:00 46 12/22/16 21:00 46 12/22/16 20:54 49 12/22/16 20:54 98.2 46 20 143/87 94 12/22/16 20:00 47 12/22/16 20:00 98.8 47 18 136/81 92 12/22/16 19:54 93 12/22/16 18:00 50 12/22/16 16:00 98.2 51 20 142/97 92 12/22/16 16:00 47 I/O 12/22/16 12/22/16 12/22/16 12/23/16 12/23/16 12/23/16 06:59 14:59 22:59 06:59 14:59 22:59 Intake Total 268 ml 1241 ml 400 ml Output Total 300 ml 400 ml 600 ml Balance -32 ml 841 ml -200 ml Intake Oral 120 ml 480 ml 400 ml IV Total 148 ml 761 ml 0 ml Output Urine Total 300 ml 400 ml 600 ml Emesis 0 ml # Bowel Movements 0 0 Physical Exam GENERAL: SKIN: Warm and dry. HEAD: Normocephalic. EYES: No scleral icterus. No injection or drainage. NECK: Supple, trachea midline. No JVD or lymphadenopathy. CARDIOVASCULAR: Regular rate and rhythm without murmurs, gallops, or rubs. RESPIRATORY: Breath sounds equal bilaterally. No accessory muscle use. GASTROINTESTINAL: Abdomen soft, non-tender, nondistended. MUSCULOSKELETAL: No cyanosis, or edema. BACK: Nontender without obvious deformity. No CVA tenderness. Laboratory Laboratory Tests Test 12/22/16 12/23/16 21:44 04:35 Troponin I LESS THAN 0.02 NG/ML White Blood Count 7.0 TH/MM3 Red Blood Count 4.54 MIL/MM3 Hemoglobin 14.6 GM/DL Hematocrit 43.8 % Mean Corpuscular Volume 96.4 FL Mean Corpuscular Hemoglobin 32.2 PG Mean Corpuscular Hemoglobin 33.4 % Concent Red Cell Distribution Width 13.4 % Platelet Count 153 TH/MM3 Mean Platelet Volume 9.4 FL Sodium Level 138 MEQ/L Potassium Level 3.8 MEQ/L Chloride Level 105 MEQ/L Carbon Dioxide Level 24.7 MEQ/L Anion Gap 8 MEQ/L Blood Urea Nitrogen 16 MG/DL Creatinine 0.88 MG/DL Estimat Glomerular Filtration 87 ML/MIN Rate Random Glucose 99 MG/DL Calcium Level 8.9 MG/DL Phosphorus Level 2.8 MG/DL Magnesium Level 1.7 MG/DL Assessment and Plan Problem List: (1) COPD (chronic obstructive pulmonary disease) (2) Sinus bradycardia (3) Diabetes mellitus (4) Hypertension (5) BPH (benign prostatic hyperplasia) Assessment and Plan 1.) Bradycardia - resolving off atenolol, ok to dc from cv standpoint, [facility], d/w patient and nurse Problem Qualifiers (1) COPD (chronic obstructive pulmonary disease): (2) Diabetes mellitus: (3) Hypertension: Qualified Code: I10 - Essential hypertension (4) BPH (benign prostatic hyperplasia): Qualified Code: N40.0 - Benign prostatic hyperplasia, presence of lower urinary tract symptoms unspecified, unspecified morphology Maxime Eastman MD December 23, 2016 15:30
--- NOTE | 2016-12-23 15:37 | HHI.DS ---
Discharge Summary Admission Date December 21, 2016 at 11:51 Discharge Date: December 23, 2016 Admitting Diagnosis bradycardia (1) Sinus bradycardia ICD Code: R00.1 Diagnosis: Principal (2) COPD (chronic obstructive pulmonary disease) ICD Code: J44.9 Diagnosis: Principal (3) History of pulmonary embolus (PE) ICD Code: Z86.711 Diagnosis: Secondary (4) Hypertension ICD Code: I10 Diagnosis: Secondary (5) BPH (benign prostatic hyperplasia) ICD Code: N40.0 Diagnosis: Secondary (6) Diabetes mellitus ICD Code: E11.9 Diagnosis: Secondary (7) Chronic venous stasis dermatitis ICD Code: I87.2 Diagnosis: Secondary Procedures No procedures performed. Brief History - From Admission 61-year-old male. Date of admission 12/21/2016. 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 Arias for replacement of Dilaudid pain pump), diabetes mellitus, atrial fibrillation and chronic venous stasis. He has a history of 5 separate surgeries to his lumbar spine. He presents to [facility] with the following history. This morning, patient states he accidentally took an atenolol in his carport. He presented preop for surgery for Dilaudid pain pump replacement/out for 2 years for which he's been taking Percocets 4 times daily, and on routine vitals noted to have sinus bradycardia. He is hemodynamically stable. He is sent by ambulance to [facility] with further evaluation treatment. Initial EKG revealed a slow A. fib. He is currently in sinus bradycardia on monitor. Electrolytes within normal limits. Troponin 0.02. Initially asymptomatic but became hypotensive and a 1 L normal saline boluses provided. Patient is currently on a glucagon drip just started at 3 mg an hour. Denies chest pain, shortness of breath, nausea or vomiting. Requesting pain medications. CBC/BMP: 12/23/16 0435 12/23/16 0435 Significant Findings Laboratory Tests Test 12/21/16 12/21/16 12/22/16 12/22/16 10:19 18:33 01:00 21:44 Red Blood Count 4.39 MIL/MM3 4.32 MIL/MM3 (4.50-5.90) (4.50-5.90) Monocytes (%) (Auto) 9.7 % (0.0-8.0) Potassium Level 5.3 MEQ/L (3.5-5.1) Blood Urea Nitrogen 23 MG/DL (7-18) 22 MG/DL (7-18) Estimat Glomerular Filtration 70 ML/MIN (>89) Rate Random Glucose 133 MG/DL 143 MG/DL (74-106) (74-106) Creatine Kinase MB 4.1 NG/ML (0.5-3.6) Troponin I LESS THAN 0.02 LESS THAN 0.02 LESS THAN 0.02 LESS THAN 0.02 NG/ML NG/ML NG/ML NG/ML (0.02-0.05) (0.02-0.05) (0.02-0.05) (0.02-0.05) Alkaline Phosphatase 39 U/L (45-117) Total Protein 6.2 GM/DL (6.4-8.2) Test 12/23/16 04:35 Estimat Glomerular Filtration 87 ML/MIN (>89) Rate Imaging Last Impressions Chest X-Ray 12/22/16 0000 Signed Impressions: Service Date/Time: Thursday, December 22, 2016 02:31 - CONCLUSION: 1. Mild left lower lung infiltrate. 2. The previously noted mild right lower lung infiltrate resolved. Yusuf Sethi MD PE at Discharge GENERAL: Obesity, no acute distress. SKIN: Warm and dry. Chronic venous stasis changes bilateral lower extremities HEAD: Atraumatic. Normocephalic. EYES: Pupils equal and round about 3 mm bilaterally and reactive. ENT: No nasal bleeding or discharge. Mucous membranes pink and moist. NECK: Trachea midline. No JVD. Right cordis clean dry and intact CARDIOVASCULAR: Bradycardia, RR. S1, S2 no S4 without murmur RESPIRATORY: Decreased breath sounds bilateral, no wheezing or crackles. GASTROINTESTINAL: Abdomen soft, non-tender, nondistended. Hepatic and splenic margins not palpable. MUSCULOSKELETAL: Extremities with chronic venous stasis/1+ nonpitting edema NEUROLOGICAL: Awake and alert. No focal deficits. PSYCHIATRIC: Appropriate mood and affect; insight and judgment normal. Transfer Summary 61-year-old admitted for sinus bradycardia. Accidentally took atenolol prior to elective surgery Hospital Course accounts receivable specialist Notes: This is a pleasant 61 y/o Male admitted 12/21/16 with Glaucoma, COPD, History of left lower extremity DVT/PE on chronic anticoagulation (held for surgery planned with Dr. Arias for replacement of Dilaudid pain pump), has diabetes mellitus, atrial fibrillation and chronic venous stasis. He has a history of 5 separate surgeries to his lumbar spine. He presents to [facility] with the following history. He accidentally took an atenolol in his carport. He presented preop for surgery for Dilaudid pain pump replacement out for 2 years for which he's been taking Percocet 4 times daily, and on routine vitals noted to have sinus bradycardia. He is hemodynamically stable. He is sent by ambulance to [facility] with further evaluation treatment. Initial EKG revealed a slow A. fib. He is currently in sinus bradycardia on monitor. Electrolytes within normal limits. 12/22: Asymptomatic. Denies chest pain, shortness of breath, dizziness. Heart rates ranged from mid 30s to upper 50s. Hemodynamically stable Hospitalist Notes: 12/23: as per social work specialist Sinus Bradycardia resolving off Atenolol. stable seen in his bedroom states he smokes and need to stop smoking, also has Obesity strongly recommended diet and exercise, No nausea, vomit or diarrhea states his actual situation was related to the intake of Atenolol that [facility] but he took them because he has like 12 bottles at home and run out of his actual anti hypertensives. discussed with nurse Miss Toussaintraine heart rate in 50s. Assessment and Plan 1. Sinus Bradycardia symptomatic/Hypertension/Atrial Fibrillation received IV fluids, was on Glucagon drip, on Hold Amiodarone 100 mg BID. Hold Lisinopril 20 mg daily while Hypotensive, stable heart rate in 50s, 2. Hyperlipidemia on hold Atorvastatin 40 mg daily. 3. Glaucoma by history 4. Chronic pain management/chronic low back pain currently on Percocet 10/325 mg four times a day, Non functioning Dilaudid pump replace when stable clinically by Doctor Arias as outpatient 5. COPD/PE by History continue Nasal Cannula, keep oxygen Saturation 92%. continue bronchodilator Mucolytic, incentive spirometry 6. BPH on hold Flomax 0.4 mg daily due to hypotension. 7. DM II hold Glucophage 850 mg BID and Glipizide 10 mg BID, sliding scale will continue Home medicines. 8. Chronic anticoagulation Warfarin on hold. 9. History of Lumbar Surgery x 5, History of Left Total Knee replacement PT evaluation 10. Obesity strongly recommended diet and exercise. 11. Hypomagnesemia 1.7 given Magnesium replacement keep mag level over 2. Prophylaxis - GI - Protonix - DVT - SCD/heparin subcutaneous Discharge Planning I have been called by Nurse he is been cleared by Cardiology, he is not on Amiodarone and Lisinopril this medicines has to be titrated again by Cardiology and PCP as outpatient, he has Sinus Bradycardia at this time. Pt Condition on Discharge: Good Discharge Disposition: Discharge Home Discharge Time: <= 30 minutes Discharge Instructions DIET: Follow Instructions for: Heart Healthy Diet, Diabetic Diet Activities you can perform: Regular-No Restrictions Tony Carrion MD December 23, 2016 15:37
[2016-12-23] MEDS ORDERED: HYDR-3583 PO (15:56)
== END 2016-12-23 17:00 | disposition home or self-care (01) | DRG 309 ==
LOC: NEPE 09:46 → NEDA 11:51 → HIMW 16:50 → HCIN 12-22 20:45
PROVIDERS: ADMIT Internal Medicine; ATTEND Internal Medicine
PROC: 05HM33Z Insertion of Infusion Device into Right Internal Jugular Vein, Percutaneous Approach (ICD-10-PCS; principal; 2016-12-21)
DX: R00.1 Bradycardia, unspecified (principal); J98.11 Atelectasis; I95.9 Hypotension, unspecified; E83.42 Hypomagnesemia; I10 Essential (primary) hypertension; E87.5 Hyperkalemia; I48.91 Unspecified atrial fibrillation; J44.9 Chronic obstructive pulmonary disease, unspecified; E11.9 Type 2 diabetes mellitus without complications; N40.0 Benign prostatic hyperplasia without lower urinary tract symptoms; H40.9 Unspecified glaucoma; G89.29 Other chronic pain; M54.5 Low back pain; Z96.652 Presence of left artificial knee joint; E78.00 Pure hypercholesterolemia, unspecified; F17.210 Nicotine dependence, cigarettes, uncomplicated; E78.5 Hyperlipidemia, unspecified; I87.2 Venous insufficiency (chronic) (peripheral); I87.8 Other specified disorders of veins; E66.9 Obesity, unspecified; Z68.35 Body mass index [BMI] 35.0-35.9, adult; Z79.899 Other long term (current) drug therapy; Z79.01 Long term (current) use of anticoagulants; Z79.84 Long term (current) use of oral hypoglycemic drugs; Z86.711 Personal history of pulmonary embolism; Z86.718 Personal history of other venous thrombosis and embolism
CPT/HCPCS: 36556; 71010; 76937; 80048; 80053; 82550; 82552; 82948; 83605; 83735; 84100; 84443; 84484; 85025; 85027; 85610; 85730; 87641; 93005; 94150; 96360; C9113; J0610; J1610; J3475; J7030; J7040